=== PATIENT | male | born 1960 | race Caucasian/White ===

== ENCOUNTER 2017-01-10 17:09 | Emergency (ER) | payer OTHER ==
[~2017-01-10] VITALS: Ht 175.3 cm; Wt 99.8 kg
[~2017-01-10 17:09] MED LIST: FENOFIBRATE54 M1 PO; FLEXERIL10 MG PO; GLIPIZIDE5 M2 PO; INDOCIN50 MG PO; INDOMETHACIN50 M1 PO; JENTADUETO 2.51 EAC2 PO; KEFLEX500 M1 PO; MELOXICAM15 MG PO; MULTI-DAY VITA1 EACH PO; SERTRALINE HCL100 MG PO; SOMA 350MG TAB350 MG PO; TRAMADOL50 MG PO
[2017-01-10 18:06] LABS: ABSOLUTE BASOPHIL COUNT 0 /CUMM (0.0-0.2); ABSOLUTE EOSINOPHIL COUNT 0.2 /CUMM (0.0-0.7); ABSOLUTE GRANULOCYTE CT 5.2 /CUMM (1.4-6.5); ABSOLUTE LYMPH COUNT 1.6 /CUMM (1.2-3.4); ABSOLUTE MONOCYTE COUNT 0.6 /CUMM (0.10-0.60); BASOPHIL % 0.4 % (0.0-2.0); EOSINOPHIL % 2.8 % (0-5); GRANULOCYTE % 68.5 % (42.2-75.2); HEMATOCRIT 45.5 % (42-52); MEAN CORPUSCULAR HGB 32.3 PG (27.0-31.0); MEAN CORPUSCULAR HGB CONC 34.1 G/DL (33.0-37.0); MEAN CORPUSCULAR VOLUME 94.8 FL (80.0-94.0); MEAN PLATELET VOLUME 8.9 FL (7.4-10.4); PLATELET COUNT 210 /CUMM (130-400); RBC DISTRIBUTION WIDTH 13.7 % (11.5-14.5); WHITE BLOOD CELL COUNT 7.6 /CUMM (4.8-10.8)
--- NOTE | 2017-01-10 18:26 | ED GENERAL ADULT ---
History of Present Illness General Chief Complaint: General Adult Stated Complaint: EVAL OF LABS DRAWN YESTERDAY EELVATED LITHIUM Vital Signs & Intake/Output Vital Signs & Intake/Output Vital Signs Date Time Temp Pulse Resp B/P B/P Pulse O2 O2 Flow FiO2 Mean Ox Delivery Rate 01/10 1714 96.2 96 16 149/97 96 Room Air Allergies Coded Allergies: NO KNOWN ALLERGIES (12/07/13) Reconcile Medications Cephalexin (Keflex) 500 MG CAPSULE 1 CAP PO TID INFECTION Reason to Stop at ADM: ON IV ABX Fenofibrate 54 MG TABLET 1 TAB PO DAILY TIGLYCERIDE/CHOLESTEROL (Reported) Glipizide 5 MG TABLET 1 TAB PO TID DM (Reported) Reason to Stop at ADM: ON ISS Indomethacin 50 MG CAPSULE 1 CAP PO TID PRN PAIN (Reported) with food Linagliptin/Metformin HCl (Jentadueto 2.5 MG-1000 MG Tab) 1 EACH TABLET 1 TAB PO BID DIABETES (Reported) Reason to Stop at ADM: ON ISS Multivitamin (Multi-Day Vitamins) 1 EACH TABLET 1 TAB PO DAILY SUPPLEMENT ( Reported) Sertraline HCl 100 MG TABLET 1 TAB PO DAILY MENTAL HEALTH (Reported) Triage Note: PT STATES HIS TOLD HIM HIS LITHIUM LEVEL WAS ELEVATED AT 2.5 THAT WAS DRAWN YESTERDAY. PT STATES HE FEELS SHAKY DEHYDRATED AND EXHAUSTED FOR THE PAST FEW DAYS. 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 History of MRSA: No History of VRE: No History of CDIFF: No Surgical History Surgical History: hernia repair-inguinal Psychosocial History Who do you live with Son Services at Home None What is your primary language American Tobacco Use: Current Daily Use Daily Tobacco Use Amount/Type: => 5 Cigarettes daily ETOH Use: denies use Illicit Drug Use: denies illicit drug use Family History Family History, If Any: Relation not specified for: *No pertinent family history Progress Plan of Care: Orders Procedure Date/time Status LITHIUM 01/10 1747 Active COMPREHENSIVE METABOLIC PANEL 01/10 1747 Active CBC WITHOUT DIFFERENTIAL 01/10 1747 Complete Laboratory Tests 01/10/17 1750: Anion Gap 10, Estimated GFR Pending, BUN/Creatinine Ratio 15.0, Glucose 302 H, Calcium Pending, Total Bilirubin 0.7, AST Pending, ALT Pending, Alkaline Phosphatase Pending, Total Protein 7.4, Albumin 4.5, Globulin 2.9, Albumin/ Globulin Ratio 1.6, CBC w Diff NO MAN DIFF REQ, RBC 4.80, MCV 94.8 H, MCH 32.3 H, RDW 13.7, MPV 8.9, Gran % 68.5, Lymphocytes % 20.9, Monocytes % 7.4, Eosinophils % 2.8, Basophils % 0.4, Absolute Granulocytes 5.2, Absolute Lymphocytes 1.6, Absolute Monocytes 0.6, Absolute Eosinophils 0.2, Absolute Basophils 0, PUBS MCHC 34.1, [employer] 1.3 H Departure Departure Condition: Stable Referrals: JACKSON PERRY,MURPHY Macdonald (PCP/Family) Departure Forms: Customer Survey General Discharge Information
[2017-01-10 18:27] LABS: LITHIUM 1.3 mmol/L (0.6-1.2)
[2017-01-10] MEDS ORDERED: HUMULIN R100 UNIT/1 SC (18:29)
[2017-01-10] MEDS ORDERED: LANTUS SOL100 UNIT/1 SC (18:29)
[2017-01-10] MEDS ORDERED: GABAPENTIN100 M2 PO (18:30)
[2017-01-10] MEDS ORDERED: LITHIUM CARBON600 M1 PO (18:30)
[2017-01-10] MEDS ORDERED: NASONEX17 GM NASB (18:30)
[2017-01-10] MEDS ORDERED: IBUPROFEN800 M1 PO (18:31)
[2017-01-10] MEDS ORDERED: GLIPIZIDE10 M2 PO (18:31)
--- NOTE | 2017-01-10 19:02 | ED GENERAL ADULT ---
History of Present Illness General Chief Complaint: General Adult Stated Complaint: EVAL OF LABS DRAWN YESTERDAY EELVATED LITHIUM Source: patient, family Exam Limitations: no limitations Vital Signs & Intake/Output Vital Signs & Intake/Output Vital Signs Date Time Temp Pulse Resp B/P B/P Pulse O2 O2 Flow FiO2 Mean Ox Delivery Rate 01/10 1956 87 144/88 01/10 1856 Room Air 01/10 1714 96.2 96 16 149/97 96 Room Air ED Intake and Output 01/11 0000 01/10 1200 Intake Total Output Total Balance Patient 220 lb Weight Allergies Coded Allergies: NO KNOWN ALLERGIES (12/07/13) Reconcile Medications Gabapentin 100 MG CAPSULE 1 CAP PO TID NERVE PAIN (Reported) Glipizide 10 MG TABLET 1 TAB PO BID DM (Reported) Ibuprofen 800 MG TABLET 1 TAB PO BID PAIN/INFLAMMATION (Reported) Insulin Glargine,Hum.rec.anlog (Lantus Solostar) 100 UNIT/ML (3 ML) INSULN.PEN 38 UNITS SC QPM DM (Reported) Insulin Regular, Human (Humulin R) 100 UNIT/ML VIAL 15 UNITS SC BID DM ( Reported) Linagliptin/Metformin HCl (Jentadueto 2.5 MG-1000 MG Tab) 1 EACH TABLET 1 TAB PO BID DIABETES (Reported) Reason to Stop at ADM: ON ISS [place] Carbonate 600 MG CAPSULE 1 CAP PO TID MENTAL HEALTH (Reported) Mometasone Furoate (Nasonex) 50 MCG SPRAY.PUMP 2 SPRAY [place] DAILY ALLERGIES ( Reported) Triage Note: PT STATES HIS DRGeorgina TOLD HIM HIS LITHIUM LEVEL WAS ELEVATED AT 2.5 THAT WAS DRAWN YESTERDAY. PT STATES HE FEELS SHAKY DEHYDRATED AND EXHAUSTED FOR THE PAST FEW DAYS. Triage Nurses Notes Reviewed? yes HPI: This is a 56-year-old male with past medical history of diabetes mellitus, bipolar, who comes in with chief complaint of elevated lithium level. Patient's yesterday outpatient routine labs showed lithium level 2.5. His PCP sent him in for a repeat lithium level and possible intervention. Patient states that for the past few weeks he has been feeling increasingly tired however he is not able to asleep at night. He does endorse some polyuria and polydipsia. He states his blood sugars have been uncontrolled at home elevated in the 200s and 300s level despite his routine regimen and good medication compliance. Patient endorses polyuria, polydipsia, and fatigue. Denies any seizures, acute considerations, palpitations, chest pain, shortness of breath, abdominal pain, change in GI or habits. Denies any change in medications other than Seroquel taken 2 days ago. However he has taken this medication before. Denies exotic ingestions. Denies any NSAID use. Repeat lab in ED shows lithium level of 1.3 despite patient having taken a dose of lithium this morning. It would be unusual for lithium levels to drop after ingestion. There is question regarding the accuracy of previous labs. Patient does not require any acute intervention at this time. He would likely benefit from repeat laboratory evaluation tomorrow. He has been counseled for the side effects of lithium toxicity and to avoid any nephrotoxic medication. Note that a possibility for acutely increased lithium could include hypovolemia secondary to polyuria which would've, mild renal function and acutely increased lithium dose. However this would be an unusual presentation. (NAYELY PARHAM MD) Past History Travel History Traveled to [place] past 21 day No Medical History Any Pertinent Medical History? 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 No (NAYELY PARHAM MD) Review of Systems Review of Systems Constitutional: Reports: malaise, weakness. Denies: chills, fever. EENTM: Denies: blurred vision, double vision. Respiratory: Reports: no symptoms. Cardiovascular: Reports: no symptoms. GI: Reports: no symptoms. Genitourinary: Reports: no symptoms. Musculoskeletal: Reports: no symptoms. Skin: Reports: no symptoms. (NAYELY PARHAM MD) Physical Exam Physical Exam General Appearance: well developed/nourished, no apparent distress, alert, awake , comfortable Head: atraumatic Eyes: Bilateral: normal appearance. Ears, Nose, Throat: normal pharynx Neck: normal inspection Respiratory: chest non-tender, quiet respiration Cardiovascular: regular rate/rhythm Gastrointestinal: normal bowel sounds, soft Extremities: 2+ pitting edema Core Measures ACS in differential dx? No CVA/TIA Diagnosis: No Severe Sepsis Present: No Septic Shock Present: No (NAYELY PARHAM MD) Progress Differential Diagnoses I considered the following diagnoses in my evaluation of the patient: [With him toxicity, DKA, nephrogenic diabetes insipidus, seizure, overdose,] Plan of Care: Orders Procedure Date/time Status LITHIUM 01/10 1747 Complete COMPREHENSIVE METABOLIC PANEL 01/10 1747 Complete CBC WITHOUT DIFFERENTIAL 01/10 1747 Complete Laboratory Tests 01/10/17 1750: Anion Gap 10, Estimated GFR > 60, BUN/Creatinine Ratio 15.0, Glucose 302 H, Calcium 10.6 H, Total Bilirubin 0.7, AST 89 H, ALT 258 H, Alkaline Phosphatase 179 H, Total Protein 7.4, Albumin 4.5, Globulin 2.9, Albumin/ Globulin Ratio 1.6, CBC w Diff NO MAN DIFF REQ, RBC 4.80, MCV 94.8 H, MCH 32.3 H, RDW 13.7, MPV 8.9, Gran % 68.5, Lymphocytes % 20.9, Monocytes % 7.4, Eosinophils % 2.8, Basophils % 0.4, Absolute Granulocytes 5.2, Absolute Lymphocytes 1.6, Absolute Monocytes 0.6, Absolute Eosinophils 0.2, Absolute Basophils 0, PUBS MCHC 34.1, [place] 1.3 H Initial ED EKG: none (PRASAD PERRY,NAYELY) Departure Departure Disposition: HOME OR SELF CARE Condition: Stable Clinical Impression Primary Impression: [place] use Referrals: JACKSON PERRY,MURPHY Macdonald (PCP/Family) Additional Instructions: 1. Kindly get repeat labs on 01/11/2017. The labs included a CMP, and lithium levels. Avoid any nephrotoxic medications such as NSAIDs. 2. Follow up closely with Dr. Sarimento 3. Follow up closely with your psychiatrist. Let them know what the changes in her medication levels. 4. Follow-up with your international marketing manager regarding a fluctuating blood sugars. 5. If her condition continues to worsen or if you have confusion, or seizure return immediately back to the ED. Departure Forms: Customer Survey General Discharge Information (PRASAD PERRY,NAYELY) Resident Co-Sign Statement Statement: ED Attending supervision documentation- [x] I saw and evaluated the patient. I have also reviewed all the pertinent lab results and diagnostic results. I agree with the findings and the plan of care as documented in the Resident's documentation. [x] I have reviewed the ED Record and agree with the Resident's documentation. [] Additions or exceptions (if any) to the Resident's note and plan are summarized below: [] (KALANI PERRY,TORRI) Critical Care Note Critical Care Note Critical Care Time: non-applicable (PRASAD PERRY,NAYELY)
[2017-01-10 19:56] VITALS: BP 144/88
== END 2017-01-10 19:57 ==
LOC: ERH 17:09
PROVIDERS: Emergency Medicine
DX: T56.891A Toxic effect of other metals, accidental (unintentional), initial encounter (principal)